=== PATIENT | female | born 1955 | race Caucasian/White ===

== ENCOUNTER → 2017-01-14 | Outpatient (CLI) | payer OTHER ==
--- NOTE | 2017-01-15 18:26 | PCVCIMAG ---
APPROVED REPORT Exam: Stress Echocardiogram Indication: CHEST PAIN, HTN, HLP, Patient Location: Echo lab Stress Nurse: Chiquita Briceño RN Status: routine Ht: 5 ft 1 in HR: 75 bpm BP: 142/86 mmHg Rhythm: NSR Procedure The patient underwent an Exercise Stress Test using the Lit Protocol. Blood pressure, heart rate, and EKG were monitored. An Echocardiogram was performed by technician inventory specialist in four stages in quad fashion. At peak stress, four selected images were obtained and placed side by side with resting images for comparison. Stress Test Details Stress Test: Exercise stress testing was performed using a Lit protocol. HR Resting HR: 75 bpmMax Heart Rate (APMHR): 157 bpm Max HR Achieved: 162 bpmTarget HR (85% APMHR): 133 bpm % of APMHR: 103 HR response to stress: Normal HR response to stress BP Resting BP: 142/86 mmHg Max BP: 146/82 mmHg ECG Resting ECG: Sinus Rhythm Clinical Reason for Termination: Maximal effort Exercise duration: 6 min sec Highest Stage Achieved: Stage 2: 2.5 mph at 12% grade. Exercise capacity: 7.00 METs Overall Exercise Capacity for Age: Normal Pre-Stress Echo The resting Echocardiogram showed normal left ventricular contractility with an estimated Ejection Fraction of about 55-60%. Normal wall motion in all segments on baseline images. Post-Stress Echo The stress Echocardiogram showed normal left ventricular contractility with an estimated Ejection Fraction of about 60-65%. Normal augmentation of wall motion in all segments on post stress images. Conclusion Clinical Response: Non-ischemic Exercise Capacity: Average Stress ECG Response: Non-ischemic Stress Echo Images: Non-ischemic Other Information Study Quality: Adequate
== END | disposition home or self-care (01) ==
LOC: PCVCIMAG 14:46
PROVIDERS: ATTEND Internal Medicine Cardiovascular Disease
DX: I10 Essential (primary) hypertension (principal); R94.31 Abnormal electrocardiogram [ECG] [EKG]; E78.5 Hyperlipidemia, unspecified; Z87.891 Personal history of nicotine dependence; Z88.2 Allergy status to sulfonamides
CPT/HCPCS: 93325; 93351